=== PATIENT | female | born 1995 | race Caucasian/White ===

== ENCOUNTER 2017-09-24 20:15 | Emergency (ER) | payer OTHER ==
[~2017-09-24] VITALS: Ht 157.5 cm; Wt 110.3 kg
[2017-09-24 20:46] LABS: HEMATOCRIT 36.5 % (36.0-46.0); HEMOGLOBIN 12.9 G/DL (11.9-15.5); MCH 30.9 PG (29.0-34.0); MCHC 35.3 G/DL (30.0-36.0); MCV 87.5 FL (83-99); PLATELET COUNT 207 K/uL (156-360); RBC DIS.WIDTH-CV 12.2 % (11.8-14.6); RED BLOOD COUNT 4.17 M/uL (3.80-5.20); WHITE BLOOD COUNT 10.3 K/uL (4.1-10.2)
[2017-09-24 21:00] LABS: ALBUMIN 3.9 g/dL (3.2-4.8); CHLORIDE 105 mEq/L (99-109); POTASSIUM 3.8 mEq/L (3.7-5.4); SODIUM 138 mEq/L (136-147)
[2017-09-24 21:03] LABS: GLUCOSE 95 mg/dL (70-99); TOTAL PROTEIN 7.2 g/dL (6.4-8.3)
[2017-09-24 21:05] LABS: TOTAL BILIRUBIN 0.3 mg/dL (0.0-1.0)
[2017-09-24 21:06] LABS: ALKALINE PHOSPHATASE 77 IU/L (3-129); CREATININE 0.7 mg/dL (0.6-1.3); GFR ESTIMATE (CALCULATED) > 59 mL/min/
[2017-09-24 21:07] LABS: UREA NITROGEN (BUN) 6 mg/dL (9-23)
[2017-09-24 21:08] LABS: AST (GOT) 27 IU/L (2-34)
[2017-09-24 21:09] LABS: ALT (GPT) 30 IU/L (3-49)
[2017-09-24 21:10] LABS: LIPASE 20 U/L (1.0-51.0)
[2017-09-24 21:33] LABS: APPEARANCE SL.HAZY ((CLEAR)); BILIRUBIN NEGATIVE; BLOOD NEGATIVE; COLOR YELLOW ((YELLOW)); GLUCOSE (STRIP) NEGATIVE; KETONES NEGATIVE; LEUKOCYTES NEGATIVE; NITRITE NEGATIVE; PROTEIN (STRIP) NEGATIVE; SPECIFIC GRAVITY 1.025 (1.000-1.030)
[2017-09-24 21:37] LABS: QUANTITATIVE HCG 40258.9 MIU/ML
[2017-09-24 21:44] LABS: BACTERIA RARE /HPF; EPITHELIAL CELLS 1+ /HPF; MUCUS TRACE /LPF; RED BLOOD CELLS 0-5 /HPF (0-5); UCUL ADDED? NO; WHITE BLOOD CELLS 0-5 /HPF (0-5)
[2017-09-25 00:22] VITALS: BP 115/80
== END 2017-09-25 00:24 | disposition home or self-care (01) ==
LOC: EME 20:15
DX: O26.892 Other specified pregnancy related conditions, second trimester (principal); R10.31 Right lower quadrant pain; Z3A.15 15 weeks gestation of pregnancy
CPT/HCPCS: 76705; 76805; 80053; 81003; 83690; 84702; 85027; 99281; 99284